=== PATIENT | female | born 1935 | race Caucasian/White ===

== ENCOUNTER 2024-12-30 15:30 | Emergency (ER) | payer MEDICARE, SELFPAY ==
[2024-12-30 15:31] VITALS: BMI 20.5
[2024-12-30 15:44] VITALS: BP 145/89; PULSE 89; RESP 18; TEMP 36.9; O2SAT 99
--- NOTE | 2024-12-30 16:03 | EDNOTE_ITS ---
ED Wound/Laceration-RME/HPI General Chief Complaint: Wound/Laceration Stated Complaint: LAC TO RIGHT ARM Time Seen by Provider: 12/30/24 15:34 Arrival date/time: 12/30/24 15:30 RME / HPI RME / HPI narrative: 89-year-old female patient came in for evaluation regarding skin tear to the right forearm. Patient sustained 4 cm skin tear to the right forearm, with minimal bleeding. Denies any other injury patient injury sustained earlier t lamine after patient accidentally scraped her forearm with a wooden cabinet. Tetanus vaccination is unknown. Related Data Allergies Allergy/AdvReac Type Severity Reaction Status Date / Time No Known Allergies Allergy Verified 12/30/24 15:31 Review of Systems Review of Systems Narrative Review of Systems: Review of system reviewed and within normal limits except mentioned in HPI ED Exam Narrative Physical exam: VITAL SIGNS: Reviewed. GENERAL APPEARANCE: Alert and interactive, follows commands, no acute distress, HEAD AND FACE: Non-traumatic. ENT: PERRL, pink conjunctivitis, eyelid no trauma, Mucous membrane moist. NECK: Supple, nontender, no nuchal rigidity. CHEST: No tenderness, no crepitus, no paradoxical movement, no retractions. LUNGS: Clear, well ventilated, symmetric, no rales, no wheezing, no ronchi, no stridor, good breath sounds bilaterally. HEART: Regular rate, regular rhythm, no murmur, no gallops. ABDOMEN: Soft, positive bowel sounds, nondistended, no guarding, nontender, no rebound, no masses, RECTAL: Deferred. GENITAL: Deferred. NEUROLOGICAL: Gross motor function intact sensory function intact, Appropriate f or age. MUSCULOSKELETAL: low back nontender, full range of motion. EXTREMITIES: 4 cm skin tear to the right forearm, full range of motion. SKIN: Color pink, dry, no rash, no lacerations, no abrasions, no contusions. LYMPHATICS: Deferred. Course Quality Measures none Orders Category Date Time Status TET,DIP/PERT AC (Adult)-Tdap [Boostrix Adult (Tdap) Med 12/30/24 16:02 Once Vacc] 0.5 ml IMI .ONCE ONE Vital Signs Vital signs: Vital Signs Temperature 98.5 F 12/30/24 15:44 Pulse Rate 89 12/30/24 15:44 Respiratory Rate 18 12/30/24 15:44 Blood Pressure 145/89 H 12/30/24 15:44 Pulse Oximetry (%) 99 12/30/24 15:44 Oxygen Delivery Method Room Air 12/30/24 15:44 Wound / Laceration MDM Narrative MDM Narrative:: 89-year-old female patient came in for evaluation regarding skin tear to the right forearm. Patient sustained 4 cm skin tear to the right forearm, with minimal bleeding. Denies any other injury patient injury sustained earlier today after patient accidentally scraped her forearm with a wooden cabinet. Tetanus vaccination is unknown. Wound cleansed with NS, and Steri-Strip applied. Patient tolerated the procedure well. Patient received Boostrix. Stable for discharge home Patient data External records reviewed:: None Clinical information provided by:: patient Social determinants that could affect healthcare access:: none Patient has the following chronic illnesses:: None How is presenting disease/condition affected by chronic disease/condition?: no chronic disease Evaluation data The following diagnostics were reviewed and interpreted by me:: other (specify) (None) Lab and/or radiology exams considered but not ordered:: None Interpretation Summary: None Medications / Prescriptions Medications or Prescriptions considered but not ordered:: None Medication administrations:: None Consultations Consultation(s) initiated? (list below): No Diagnosis Wound Differential Diagnosis: laceration, abrasion and avulsion of skin Most likely diagnosis given after review of the tests above:: Skin tear forearm Admission Indicated Admission indicated?: not indicated Admission Request Was there a request for admission?: No Disposition Plan Disposition Plan: Discharge Discharge Attestation Discharge Attestation: The patient and all family members were given an opportunity to ask questions and understood the discharge instructions. Discharge instructions specifically effects, indications for sooner follow up or return to the emergency department, and the expected course of current diagnosis. Patient condition: Stable Discharge Plan Plan Patient Disposition: HOME (Self Care) Discharge Disposition comment: Stable Problem List Clinical Impression: Skin tear Patient/Caregiver Discharge Instructions Discharge Activity: activity as tolerated Education Materials: ED Skin Avulsion Additional Instructions: Thank you for the opportunity for serving you today. You are stable for discharged . You are advised to: Follow-up with your PCP in 1 to 2 days Return to ED for worsening of symptoms Increase oral fluids Do not get your skin tear wet for the next 7 days, do not remove your Steri- Strips or dressing for the next 7 days Print Language: [place] Stand Alone Forms: [facility] Award Info., Patient Portal Info Letter PA/[employer] S[employer]IOR PROJECT MANAGER Supervising Physician PA/[employer] SENIOR PROJECT MANAGER Supervising Physician: MD Oscar
[2024-12-30] MEDS: DIPHTH,PERTUSS(ACELL),TET VAC 0.5 ML SYR- ADULT IMi (17:19)
== END 2024-12-30 17:45 | disposition home or self-care (01) ==
PROVIDERS: Emergency Provider Family Medicine
DX: S51.811A Laceration without foreign body of right forearm, initial encounter (principal); W45.8XXA Other foreign body or object entering through skin, initial encounter; Z23 Encounter for immunization
CPT/HCPCS: 90471; 90715; 99281